=== PATIENT | female | born 1995 | race Two or more races ===

== ENCOUNTER 2021-02-20 12:17 | Emergency (ER) | payer MEDICAID, OTHER ==
[~2021-02-20] VITALS: Ht 152.4 cm; Wt 83.9 kg
[2021-02-20 12:48] LABS: Urine Bacteria MOD /hpf (None Seen); Urine Blood Negative /uL (Negative); Urine Specific Gravity 1.011 (1.001-1.035); Urine WBC 77 /hpf (0 - 5)
[2021-02-20 14:52] VITALS: BP 114/82
== END 2021-02-20 15:00 | disposition home or self-care (01) ==
LOC: ER 12:17
DX: N39.0 Urinary tract infection, site not specified (principal)
CPT/HCPCS: 81001; 81025